=== PATIENT | male | born 1980 | race African-American/Black ===

== ENCOUNTER 2017-11-07 10:52 | Emergency (ER) | payer OTHER ==
[2017-11-07 11:48] VITALS: BP 130/81; PULSE 56; TEMP 98.4; BMI 27.8
[2017-11-07] MEDS ORDERED: TETRACAINE 0.5% OPHTH SOLN 2 ML BOTTLE ONE (12:24)
[2017-11-07] MEDS ORDERED: FLUORESCEIN NA 1 EA STRIP ONE (12:24)
--- NOTE | 2017-11-07 12:41 | PDOC ---
Attending Attestation - HPI HPI: 11/07/17 12:44 The patient is a 37 year old male with no significant PMH who presents to the emergency department with right eye pain and irritation which worsened approximately this morning. The patient reports using the same contacts he should take out every night for 2 months. He has noted intermittent right eye redness over the past month. He reports removing his contact 3 days ago and leaving it in cleaning solution until last night when he put it back in. He woke up this morning after his right eye became increasingly red and irritated. Allergies: NKA PCP: Dr. Seth Acosta <Bret Negrete - Last Filed: 11/07/17 12:46> - Resident Resident Name: Jakob Sullivan - ED Attending Attestation I have performed the following: I have examined & evaluated the patient, The case was reviewed & discussed with the resident, I agree w/resident's findings & plan, Exceptions are as noted - Physicial Exam PE: GENERAL: Awake, alert, and fully oriented, in no acute distress HEAD: No signs of trauma EYES: R eye with conjunctival injection. No abnormal uptake on fluorescein exam. PERRLA, EOMI, sclera anicteric, L conjunctiva clear ENT: Auricles normal inspection, hearing grossly normal, nares patent, oropharynx clear without exudates. Moist mucosa NECK: Normal ROM, supple, no lymphadenopathy, JVD, or masses NEUROLOGICAL: Cranial nerves II through XII grossly intact. Normal speech, normal gait SKIN: Warm, Dry, normal turgor, no rashes or lesions noted. - Medical Decision Making 11/07/17 12:41 i-STOP Reference #: [id number] Pt to be discharged home with fluoroquinolone ophthalmic drops. Counseled not to wear contacts until cleared by ophtho. Also counseled not to misuse them, wearing for extended periods if they are not designed for that. <Ashley Rangel - Last Filed: 11/10/17 13:52>
--- NOTE | 2017-11-07 12:47 | PDOC ---
History of Present Illness - General Chief Complaint: Eye Problem Stated Complaint: EYE INJURY Time Seen by Provider: 11/07/17 11:26 History Source: Patient Exam Limitations: No Limitations - History of Present Illness Initial Comments: 11/07/17 12:42 The patient is a 37M with no PMH who presents to the ER with complaints of eye pain. The patient states that he's left a 1 month contact in his eyes for 2 months. He says that it began to irritate him last night and this morning he woke up with severe pain in his eye and light sensitivity. He denies any discharge from his eye, fever, chills, nausea, vomiting. Past History - Past Medical History Allergies/Adverse Reactions: Allergies Allergy/AdvReac Type Severity Reaction Status Date / Time shellfish derived Allergy Verified 11/07/17 11:48 Home Medications: Ambulatory Orders Ofloxacin 0.3% Ophth Soln [Ocuflox -] 2 drop OP QID #1 bottle 11/07/17 COPD: No - Suicide/Smoking/Psychosocial Hx Smoking History: Current every day smoker Number of Cigarettes Smoked Daily: 20 Information on smoking cessation initiated: No Hx Alcohol Use: No Drug/Substance Use Hx: No Substance Use Type: Alcohol Review of Systems - Review of Systems Able to Perform ROS?: Yes Comments:: 11/07/17 12:46 GENERAL/CONSTITUTIONAL: No fever or chills. No weakness. HEAD, EYES, EARS, NOSE AND THROAT: Positive for eye pain. No change in vision. No ear pain or discharge. No sore throat. CARDIOVASCULAR: No chest pain, palpitations, or lightheadedness. RESPIRATORY: No cough, wheezing, shortness of breath, or hemoptysis. GASTROINTESTINAL: No nausea, vomiting, diarrhea, constipation, or abdominal pain. GENITOURINARY: No dysuria, frequency, hematuria, or change in urination. MUSCULOSKELETAL: No joint or muscle swelling or pain. No neck or back pain. SKIN: No rash or lesions. NEUROLOGIC: No headache, numbness, tingling, weakness, loss of consciousness, or change in strength/sensation. ENDOCRINE: No increased thirst. No abnormal weight change. HEMATOLOGIC/LYMPHATIC: No anemia, easy bleeding, or history of blood clots. ALLERGIC/IMMUNOLOGIC: No hives or skin allergy. Is the patient limited Cypriot proficient: No *Physical Exam - Vital Signs Last Vital Signs Temp Pulse Resp BP Pulse Ox 98.4 F 56 L 18 130/81 100 11/07/17 10:55 11/07/17 10:55 11/07/17 10:55 11/07/17 10:55 11/07/17 10:55 - Physical Exam Comments: 11/07/17 12:47 GENERAL: Well developed, well nourished. Awake and alert. No acute distress. HEENT: Normocephalic, atraumatic. Hearing grossly normal. Moist mucous membranes. PERRLA, EOMI. Pain on consensual and direct light in R eye. Conjunctival injection in R eye. No ulcers or abrasions noted on fluoroscene exam. Oropharynx is clear. NECK: Supple. Full ROM. No JVD. CARDIOVASCULAR: Regular rate and rhythm. No murmurs, rubs, or gallops. PULMONARY: No evidence of respiratory distress. Lungs clear to auscultation bilaterally. No wheezing, rales or rhonchi. ABDOMINAL: Soft. Non-tender. Non-distended. No rebound or guarding. MUSCULOSKELETAL: Normal range of motion at all joints. No bony deformities or tenderness. EXTREMITIES: No cyanosis. No clubbing. No edema. No calf tenderness. SKIN: Warm and dry. Normal capillary refill. No rashes. No jaundice. NEUROLOGICAL: Alert, awake, appropriate. Cranial nerves 2-12 intact. Normal speech. Gait is normal without ataxia. PSYCHIATRIC: Cooperative. Good eye contact. Appropriate mood and affect. Medical Decision Making - Medical Decision Making 11/07/17 12:49 The patient is a 37M with no PMH who presents with conjunctivitis 2/2 to leaving his contact in his eye. Will d/c with abx and f/u. *DC/Admit/Observation/Transfer Diagnosis at time of Disposition: Conjunctivitis Qualifiers: Conjunctivitis type: acute Acute conjunctivitis type: bacterial Laterality: right Qualified Code(s): H10.31 - Unspecified acute conjunctivitis, right eye - Discharge Dispostion Disposition: HOME Condition at time of disposition: Stable Admit: No - Prescriptions Prescriptions: Ofloxacin 0.3% Ophth Soln [Ocuflox -] 2 drop OP QID #1 bottle - Referrals Referrals: Seth Acosta [Primary Care Provider] - - Patient Instructions Printed Discharge Instructions: DI for Conjunctivitis Additional Instructions: Please return to the ER if symptoms persist, worsen, or new symptoms arise. Please follow up with your primary care physician in 2-3 days. Please return to the ER if you have any signs or symptoms of chest pain, shortness of breath, uncontrollable fever, chills, nausea, vomiting, numbness, tingling, or weakness in any part of your body, changes in vision, or slurred speech. Please take your medications as prescribed. - Post Discharge Activity
== END 2017-11-07 12:56 | disposition home or self-care (01) ==
LOC: JER 10:52
DX: H10.31 Unspecified acute conjunctivitis, right eye (principal)
CPT/HCPCS: 99282-25